=== PATIENT | female | born 1995 | race Caucasian/White ===

== ENCOUNTER 2017-06-16 06:30 | Day surgery (SDC) | payer OTHER ==
--- NOTE | 2017-06-14 08:12 | History and Physical ---
History & Physical Date Jun 14, 2017. Chief Complaint Left arm pain History of Present Illness The patient is a 21 year old female with complaints of left arm pain. Patient was bucked off a horse in the beginning of May. She sustained a wrist fracture that was fixed by Dr. Sage as well as a displaced clavicle fracture. She was to have this done at [facility] but due to difficulty obtaining an IV site, she was changed to [facility] for surgery. She is scheduled for an ORIF of her left clavicle fracture. Physical Examination Skin: warm/dry, no rash Eyes: normal inspection, EOMI ENT: normal ENT inspection Head: normocephalic, atraumatic Neck: supple, no adenopathy Respiratory/Chest: lungs clear, normal breath sounds Cardiovascular: regular rate, rhythm, no murmur Extremities: + pertinent finding (tending of skin of the left clavicle. decreased ROM of left arm. ecchymosis of left arm) Neurologic/Psych: no motor/sensory deficits, alert, oriented x 3 Diagnosis Left Displaced Clavicle Fracture Plan of Treatment Patient is scheduled for a left ORIF Clavicle fracture. Risks and benefits were discussed with the patient. The patient understands the risks and wishes to proceed. All questions were answered to her satisfaction.
[2017-06-14 11:12] VITALS: BMI 40.0
[~2017-06-16] VITALS: Ht 165.1 cm; Wt 109.5 kg
[~2017-06-16 06:30] MED LIST: CEFAZOLIN 2000MG IV PUSH 10 ML IV SCH; CLR10 PO; EPP3/2 IM; FLUO20CA35 PO; HYDR-4331 PO; LACTATED RINGER'S 1000ML 1,000 ML IV SCH; MULT1TAB22 PO; OMEP40CA41 PO; PROP10TA7 PO; ZINC50TA3 PO
[2017-06-16 06:58] VITALS: BP 116/71; PULSE 76; TEMP 36.6; O2SAT 98; Ht 165.1 cm; Wt 109.5 kg
--- NOTE | 2017-06-16 07:08 | History & Physical Bridge Note ---
H&P Re-Evaluation Bridge Note: I have examined the patient, reviewed the History & Physical and in the interval since the performance of the History & Physical I have noted the following changes of clinical significance: No changes noted
[2017-06-16] MEDS ORDERED: ROPIVACAINE 0.5% 5 MG/ML 30 ML VIAL ONE (07:26)
[2017-06-16] MEDS ORDERED: MIDAZOLAM HCL 1 MG/ML 2ML VIAL ONE (08:09)
[2017-06-16] MEDS ORDERED: FENTANYL CITRATE INJ 50 MCG/1 ML 2 ML VIAL ONE (08:09)
[2017-06-16] MEDS ORDERED: ONDANSETRON INJ 2 MG/ML 2 ML VIAL IV PRN ×2 (09:00→11:00)
[2017-06-16] MEDS ORDERED: ATROPINE SULFATE 0.1 MG/ML 5ML SYR IV PRN (09:00)
[2017-06-16] MEDS ORDERED: FENTANYL CITRATE INJ 50 MCG/1 ML 2 ML VIAL IV PRN (09:00)
[2017-06-16] MEDS ORDERED: EpHEDrine SULFATE INJ 50 MG/ML AMP IV PRN (09:00)
[2017-06-16] MEDS ORDERED: DEXAMETHASONE SOD INJ 4 MG/ML VIAL ONE (09:10)
[2017-06-16] MEDS ORDERED: PROPOFOL IV EMULSION 10 MG/ML 20 ML VIAL IV ONE (09:10)
[2017-06-16] MEDS ORDERED: ONDANSETRON INJ 2 MG/ML 2 ML VIAL ONE (09:10)
[2017-06-16] MEDS ORDERED: ROCURONIUM BROMIDE 10 MG/ML 5 ML VIAL IV ONE ×2 (09:10→09:43)
[2017-06-16] MEDS ORDERED: PHENYLEPHRINE 100MCG/ML 5ML SYR ONE (09:10)
[2017-06-16] MEDS ORDERED: GLYCOPYRROLATE INJ 0.2 MG/ML VIAL ONE (09:10)
[2017-06-16] MEDS ORDERED: NEOSTIGMINE METHYLSULFATE 1 MG/ML 10ML VIAL ONE (09:10)
[2017-06-16] MEDS ORDERED: BUPIVACAINE 0.5 % 5 MG/1 ML MPF 30ML VIAL ONE (10:15)
--- NOTE | 2017-06-16 10:39 | DIAGNOSTIC IMAGING REPORT ---
INTRAOPERATIVE RADIOGRAPH CLINICAL HISTORY: Open reduction and internal fixation of the left clavicle. Fluoroscopy time: 14 seconds. FINDINGS: A single spot fluoroscopic view of the left clavicle is presented. There is been buttress plate fixation of a left clavicular fracture with catholic of near-anatomic alignment. At least 8 cortical lag screws transfix the plate. The orthopedic hardware appears intact. IMPRESSION: Intraoperative image from open reduction and internal fixation of a left clavicular fracture. Electronically signed by: Tripp Kahn M.D. 06/16/2017 10:38 AM Dictated Date/Time: 06/16/2017 10:36 AM
--- NOTE | 2017-06-16 10:39 | DIAGNOSTIC IMAGING REPORT ---
INTRAOPERATIVE RADIOGRAPH CLINICAL HISTORY: Open reduction and internal fixation of the left clavicle. Fluoroscopy time: 14 seconds. FINDINGS: A single spot fluoroscopic view of the left clavicle is presented. There is been buttress plate fixation of a left clavicular fracture with evangelical of near-anatomic alignment. At least 8 cortical lag screws transfix the plate. The orthopedic hardware appears intact. IMPRESSION: Intraoperative image from open reduction and internal fixation of a left clavicular fracture. Electronically signed by: Tripp Kahn M.D. 06/16/2017 10:38 AM Dictated Date/Time: 06/16/2017 10:36 AM
[2017-06-16] MEDS ORDERED: MoRPHine SULFATE 2 MG/ML CARP IV PRN (11:00)
[2017-06-16] MEDS ORDERED: OXYCODONE HCL IR 5 MG TAB (IMMEDIATE RELEASE) PO PRN ×2 (11:00)
[2017-06-16] MEDS ORDERED: KETOROLAC TROMETHAMINE 30 MG/ML VIAL IV. PRN (11:00)
[2017-06-16] MEDS ORDERED: ACETAMINOPHEN 325 MG TAB PO PRN (11:00)
[2017-06-16] MEDS ORDERED: OXYC-57 PO (11:05)
--- NOTE | 2017-06-16 11:13 | Discharge Instructions ---
Discharge Instructions Date of Service Jun 16, 2017. Visit Reason for Visit: Left Clavicle Fracture Discharge Discharge Diagnosis / Problem: Left Clavicle Fracture Discharge Goals Goal(s): Decrease discomfort, Improve function Activity Recommendations Activity Limitations: per Instructions/Follow-up section Anesthesia . Post Anesthesia Instructions: If you have had General Anesthesia or IV Sedation: * Do not drive today. * Resume driving when surgeon permits. * Do not make important decisions or sign legal documents today. * Call surgeon for: 1. Temperature elevations greater than 101 degrees F. 2. Uncontrollable pain. 3. Excessive bleeding. 4. Persistent nausea and vomiting. 5. Medication intolerance (nausea, vomiting or rash). * For nausea and vomiting use only clear liquids such as: tea, soda, bouillon until nausea subsides, then gradually increase diet as tolerated. * If you have any concerns or questions, call your surgeon's office. If physician is unavailable and it is an emergency, call 911 or go to the nearest emergency room. . Instructions / Follow-Up Instructions / Follow-Up Keep dressing clean and dry. Chnage dressing in 48 hours You may shower in 72 hours and get the wound wet if ther is little to no drainage. Do not soak the wound. Do not let the shower pressure beat on the wound.. Keep the wound covered with 4x4 gauze. Ice to the area regularly for the first 48 hours You will be off work for 6 weeks. DERMABOND Prineo- This is a mesh tape dressing that is covered with glue. It should remain in place until the incision is properly healed, usually 10-14 days. This dressing is designed to naturally slough off. You may trim the excess mesh tape as it peels off. Incision may be briefly wet in a shower. Dry immediately by blotting with a clean, dry towel. Do not bath or swim until instructed by your doctor. Do not scratch, rub, or pick at the dressing. Do not apply any topical ointments or lotions until dressing is completely removed and/or instructed by your doctor. There may be a small piece of suture material at one end of your incision. Do not pull or trim this. If it is bothersome or catching on clothing, you may cover it with a band-aid. Follow up with Dr Au in 10-14 days from the day of suregery. Call for appointment. [phone] Diet Recommendations Recommended Home Diet: resume previous diet Procedures Procedures Performed: Left Clavicle (Large Fracture) Open Reduction Internal Fixation Pending Studies Studies pending at discharge: no Medical Emergencies . Who to Call and When: Medical Emergencies: If at any time you feel your situation is an emergency, please call 911 immediately. . Non-Emergent Contact Non-Emergency issues call your: Surgeon Call Non-Emergent contact if: temperature is above 101.5, your pain is not controlled, your pain is worsening, wound has increased drainage, wound has increased redness . . "Provider Documentation" section prepared by Saul Calderon. . [place] Drug Monitoring Program Search Results: patient reviewed within database, no issues identified
--- NOTE | 2017-06-16 11:30 | [facility] Operative Report ---
Operative Report Operative Date Jun 16, 2017. Pre-Operative Diagnosis Displaced Clavicle Fracture Post-Operative Diagnosis Displaced Clavicle Fracture Procedure(s) Performed Left Clavicle (Large Fracture) Open Reduction Internal Fixation Surgeon [employer] Arch[employer] Surgeon(s) Saul Calderon PA-C Estimated Blood Loss 20cc Findings as above Specimens None Per Surgeon Drains 0 Anesthesia geta Complication(s) None Disposition Recovery Room / PACU Indications The patient is a 21-year-old female who sustained a fall off of a horse that was bucked. She had loss of consciousness and was life flighted to [place]. She also sustained a fracture dislocation of the elbow treated operatively on the contralateral arm. She sustained a displaced midshaft clavicle fracture. It was translated 200% anteriorly and shortened about a centimeter. Given the amount of displacement I recommended open reduction and internal fixation. She wishes to proceed with surgery. Description of Procedure Risks, benefits, and alternatives to surgery including but not limited to infection, pain, stiffness, nonunion, need for revision surgery, DVT, damage to blood vessels, damage to nerves, risks of anesthesia were discussed with the patient and they wished to proceed. The patient was identified and laterality was confirmed and marked. The patient received a preoperative antibiotic and was transferred to the operating room and placed in supine position and induced into general endotracheal anesthesia. She was placed in a slight beachchair position. The clavicles and prepped and draped in the usual standard manner with ChloraPrep. I made an incision in line with the clavicle sharply incising the skin and using Bovie electrocautery to achieve hemostasis. I incised the clavipectoral fascia. I was careful to identify and protect the crossing sensory nerve branches. I then dissected down to the fracture site. There was a fair amount of interposing callus had formed issues about 3-1/2 weeks out from her injury. This was cleared with a combination of a wood handled elevator and a curet and rongeur. Once the fracture was mobilized used 2 reduction clamps to reduce the fracture. I then used a Synthes 6-hole with lateral extension precontoured locking plate. Under fluoroscopic guidance I positioned the clavicle plate appropriately and placed a nonlocking screw laterally. I confirmed positioning on fluoroscopy and placed another nonlocking screw medially. And then while holding the reduction with reduction clamp I placed an additional locking screw medially and another nonlocking screw laterally angled away from the fracture. Maintained good reduction and placement of the plate. I then placed additional 3 locking screws in the lateral aspect the plate there were 2.7 mm locking screws into and additional one locking screw medially. The screw lengths were confirmed one of the nonlocking screws needed be replaced with a shorter screw. Overall satisfied with the alignment of the fracture and placement of the implants. The wound was thoroughly irrigated. Fascia was closed with interrupted #1 Vicryl suture. Subcutaneous tissue and interrupted 2-0 Vicryl suture. Skin was closed with 3-0 running Monocryl and dermabond. A sterile dressing was applied. All needle and sponge counts were correct at the end of the procedure. The patient was transferred to the PACU in stable condition without apparent complication. I attest to the content of the Intraoperative Record and any orders documented therein. Any exceptions are noted below.
[2017-06-16 11:50] VITALS: BP 113/63; PULSE 94; TEMP 36.8; O2SAT 92
--- NOTE | 2017-06-16 12:02 | Anesthesiology Progress Note ---
Anesthesia Post Op Note Date & Time Jun 16, 2017 at 12:02 Vital Signs Pain Intensity: 0 Vital Signs Past 12 Hours Date Time Temp Pulse Resp B/P (MAP) Pulse Ox O2 Delivery O2 Flow Rate FiO2 06/16/17 11:45 36.7 98 18 105/68 92 Room Air 06/16/17 11:35 91 19 110/69 93 Room Air 06/16/17 11:25 85 17 110/67 98 Oxymask 10 06/16/17 11:15 85 18 116/71 99 Oxymask 10 06/16/17 11:05 100 19 116/80 97 Oxymask 10 06/16/17 10:59 36.2 85 16 123/87 96 Oxymask 10 06/16/17 06:58 36.6 76 18 116/71 (86) 98 Room Air Notes Mental Status: alert / awake / arousable, participated in evaluation Pt Amnestic to Procedure: Yes Nausea / Vomiting: adequately controlled Pain: adequately controlled Airway Patency, RR, SpO2: stable & adequate BP & HR: stable & adequate Hydration State: stable & adequate Anesthetic Complications: no major complications apparent
[2017-06-16 12:20] VITALS: BP 102/63; PULSE 98; O2SAT 92
[2017-06-16 12:50] VITALS: BP 100/62; PULSE 98; TEMP 36.8; O2SAT 92
== END 2017-06-16 13:07 | disposition home or self-care (01) ==
LOC: C.ACU 06:30
PROVIDERS: ATTEND Orthopaedic Surgery
DX: S42.022A Displaced fracture of shaft of left clavicle, initial encounter for closed fracture (principal); V80.010A Animal-rider injured by fall from or being thrown from horse in noncollision accident, initial encounter